=== PATIENT | female | born 1985 | race Caucasian/White ===

== ENCOUNTER 2017-01-30 07:26 | Emergency (ER) | payer MEDICAID ==
[~2017-01-30] VITALS: Ht 157.5 cm; Wt 71.5 kg
[2017-01-30 07:30] VITALS: Ht 157.5 cm; Wt 71.5 kg
[2017-01-30] MEDS ORDERED: SOD CHLORIDE 0.9% 1,000 ML IV STA (08:26)
[2017-01-30] MEDS ORDERED: ONDANSETRON 4 MG INJ IV STA (08:26)
[2017-01-30] MEDS ORDERED: ACETAMINOPHEN 500 MG TAB PO STA (08:52)
[2017-01-30 09:12] LABS: BASOPHILS % 0.3 % (0.0-2.0); EOSINOPHILS # 0.2 10^3/ul (0.0-0.5); EOSINOPHILS % 2.1 % (0.0-7.0); HEMATOCRIT 39.2 % (37.0-47.0); HEMOGLOBIN 13.8 g/dl (12.0-16.0); LYMPHOCYTES # 2.6 10^3/ul (0.8-2.9); LYMPHOCYTES % 33.3 % (15.0-51.0); MEAN CORPUSCULAR HGB CONC 35.2 g/dl (32.0-37.0); MEAN CORPUSCULAR VOLUME 88.1 fl (82.0-101.0); MEAN PLATELET VOLUME 10.3 fl (7.4-10.4); MONOCYTE # 0.5 10^3/ul (0.3-0.9); MONOCYTES % 6.7 % (0.0-11.0); NEUTROPHIL # 4.5 10^3/ul (1.6-7.5); NEUTROPHILS % 57.3 % (39.0-77.0); PLATELET COUNT 385 10^3/UL (140-415); RED BLOOD COUNT 4.45 10^6/ul (4.20-5.40); RED CELL DISTRIBUTION WIDTH 11.9 % (11.5-14.5); WHITE BLOOD COUNT 7.8 10^3/ul (4.8-10.8)
[2017-01-30 09:22] LABS: ADD UMIC YES; UR ASCORBIC ACID NEGATIVE (NEGATIVE); UR BACTERIA FEW /HPF (NONE SEEN); UR BILIRUBIN (Dip) NEGATIVE (NEGATIVE); UR BLOOD (Dip) NEGATIVE (NEGATIVE); UR CLARITY SLIGHTLY CLOUDY (CLEAR); UR COLOR YELLOW (YELLOW); UR GLUCOSE (Dip) NEGATIVE (NEGATIVE); UR KETONES (Dip) NEGATIVE (NEGATIVE); UR LEUKOCYTE ESTERASE (Dip) 1+ Leu/ul (NEGATIVE); UR MUCUS MANY /HPF (NONE SEEN); UR NITRITE (Dip) NEGATIVE (NEGATIVE); UR RBC 4 /HPF (0-5); UR SPECIFIC GRAVITY (Dip) 1.021 (1.003-1.030); UR SQUAMOUS EPITHELIAL CELL MODERATE /HPF (FEW); UR TOTAL PROTEIN (Dip) NEGATIVE (NEGATIVE); UR UROBILINOGEN (Dip) NEGATIVE (NEGATIVE)
[2017-01-30 09:28] LABS: ALBUMIN 4.1 g/dl (3.3-4.9); ALBUMIN/GLOBULIN RATIO 0.97; BILIRUBIN,INDIRECT 0.5 mg/dl (0-1.1); BILIRUBIN,TOTAL 0.5 mg/dl (0.2-1.3); CALCIUM 9.7 mg/dl (8.4-10.2); CREATININE 0.52 mg/dl (0.44-1.00); POTASSIUM 3.9 mmol/L (3.5-5.1); TOTAL PROTEIN 8.3 g/dl (6.1-8.1)
--- NOTE | 2017-01-30 09:43 | RADRPT ---
PROCEDURE: US LIMITED ABDOMEN RIGHT UPPER QUADRANT CLINICAL INDICATION: Right upper quadrant abdominal pain TECHNIQUE: Multiple real-time images were acquired of the patient's right upper quadrant utilizing a high resolution transducer. COMPARISON: None FINDINGS: The pancreas is partially visualized due to overlying bowel gas. The aorta and IVC are within normal limits. Hepatic morphology is within limits. There is diffuse heterogeneous echotexture of the liver The yen er measures 15.2 cm in length. There is normal hepatic pedal flow of the portal vein. The gallbladder is visualized. Multiple gallstones are identified. No evidence of gallbladder wall t hickening. The common bile duct is within normal limits measuring 4.1 mm. The right kidney measures 10.1 cm. The cortex and parenchymal is within normal limits. No evidence o f obstruction hydronephrosis. IMPRESSION: 1. Partial visualization of the pancreas due to overlying bowel gas. 2. Fatty liver. 3. Cholelithiasis, without gross sonographic evidence of inflammatory changes at this time. Common b ile duct is within normal limits. Correlate with clinical findings. RPTAT: AARR Physician Brooklynn Date Time Electronically viewed and signed by Physician Brooklynn on 01/30/2017 09:43 JEROMY/
--- NOTE | 2017-01-30 10:05 | RADRPT ---
PROCEDURE: First trimester obstetrical ultrasound. CLINICAL INDICATION: , pelvic pain TECHNIQUE: Transabdominal and transvaginal glass scale and color Doppler ultrasound of the uterus of less than 14 weeks gestation (first trimester). COMPARISON: None available FINDINGS: A single intrauterine gestation is present. No evidence of extrauterine gestation. Mean sac diameter: 3.47 cm [place]-rump length: 2.30 cm heart rate: 173 Beats per minute Small subchorionic hemorrhage is present. Free fluid: None. IMPRESSION: Single intrauterine gestation with an estimated gestational age of 8 weeks 6 days by ultrasound kaushal mayo. Small subchorionic hemorrhage. RPTAT: AADD .Black Calvo MD, MD Date Time Electronically viewed and signed by .Black Calvo MD, on 01/30/2017 10:04 .B/
[2017-01-30] MEDS ORDERED: ACET325T33 PO (11:17)
[2017-01-30 11:37] VITALS: BP 99/59; PULSE 77; RESP 18; TEMP 98.2
--- NOTE | 2017-01-30 15:06 | ERD ---
ER Documentation Chief Complaint Chief Complaint ABDOMINAL PAIN,VOMITING,8 WEEKS HPI 31-year-old female complaining of abdominal pain. Patient is 8 weeks . She had one episode of vomiting earlier today. LNMP was November 24. She has not been seen by outside clinic. A0. Denies vaginal bleeding. Denies chest pain or shortness of breath. Denies fever. Has not taken medications for symptoms. States abdominal pain is constant. Denies medical problems. Allergy to medications, penicillin. Surgical history: Denies. Social history: Denies ROS All systems reviewed and are negative except as per history of present illness. Medications Home Meds Active Scripts Acetaminophen* (Tylenol*) 325 Mg Tablet, 2 TAB PO Q6 Y for PAIN AND OR ELEVATED TEMP, #20 TAB Prov:MICHELE FRANK PA-C 01/30/17 Allergies Allergies: Coded Allergies: No Known Allergy (Unverified , 01/30/17) PMhx/Soc Medical and Surgical Hx: pt denies Medical Hx, pt denies Surgical Hx Hx Alcohol Use: No Hx Substance Use: No Hx Tobacco Use: No Smoking Status: Never smoker Physical Exam Vitals Vital Signs Date Time Temp Pulse Resp B/P Pulse Ox O2 Delivery O2 Flow Rate FiO2 01/30/17 11:37 98.2 77 18 99/59 98 Room Air 01/30/17 07:30 71.5 82 18 110/71 98 Physical Exam GENERAL: The patient is well-appearing, well-nourished, in no acute distress HEENT: Atraumatic. Conjunctivae are pink. Pupils equal, round, and reactive to light. There is no scleral icterus. Tympanic membranes clear bilaterally. Oropharynx clear. No nystagmus or photophobia. NECK: C-spine is soft and supple. There is no meningismus. There is no cervical lymphadenopathy. CHEST: Clear to auscultation bilaterally. There are no rales, wheezes or rhonchi. HEART: Regular rate and rhythm. No murmurs, clicks, rubs or gallops. No S3 or S4. ABDOMEN:Soft, nontender and nondistended. Good bowel sounds. No rebound or guarding. No gross peritonitis. No gross organomegaly or masses. No Bonds sign or McBurney point tenderness. Result Diagram: 01/30/1744 01/30/17843 Results 24 hrs Laboratory Tests Test 01/30/17 08:44 White Blood Count 7.810^3/ul Red Blood Count 4.4510^6/ul Hemoglobin 13.8g/dl Hematocrit 39.2% Mean Corpuscular Volume 88.1fl Mean Corpuscular Hemoglobin 31.0pg Mean Corpuscular Hemoglobin Concent 35.2g/dl Red Cell Distribution Width 11.9% Platelet Count 15913^3/UL Mean Platelet Volume 10.3fl Neutrophils % 57.3% Lymphocytes % 33.3% Monocytes % 6.7% Eosinophils % 2.1% Basophils % 0.3% Nucleated Red Blood Cells % 0.0/100WBC Neutrophils # 4.510^3/ul Lymphocytes # 2.610^3/ul Monocytes # 0.510^3/ul Eosinophils # 0.210^3/ul Basophils # 0.010^3/ul Nucleated Red Blood Cells # 0.010^3/ul Urine Color YELLOW Urine Clarity SLIGHTLY CLOUDY Urine pH 5.0 Urine Specific [place] 1.021 Urine Ketones NEGATIVEmg/dL Urine Nitrite NEGATIVEmg/dL Urine Bilirubin NEGATIVEmg/dL Urine Urobilinogen NEGATIVEmg/dL Urine Leukocyte Esterase 1+Monica/ul Urine Microscopic RBC 4/HPF Urine Microscopic WBC 16/HPF Urine Squamous Epithelial Cells MODERATE/HPF Urine Bacteria FEW/HPF Urine Mucus MANY/HPF Urine Hemoglobin NEGATIVEmg/dL Urine Glucose NEGATIVEmg/dL Urine Total Protein NEGATIVEmg/dl Sodium Level 140mmol/L Potassium Level 3.9mmol/L Chloride Level 101mmol/L Carbon Dioxide Level 27mmol/L Anion Gap 16 Blood Urea Nitrogen 7mg/dl Creatinine 0.52mg/dl Glucose Level 105mg/dl Calcium Level 9.7mg/dl Total Bilirubin 0.5mg/dl Direct Bilirubin 0.00mg/dl Indirect Bilirubin 0.5mg/dl Aspartate Amino Transf (AST/SGOT) 32IU/L Alanine Aminotransferase (ALT/SGPT) 51IU/L Alkaline Phosphatase 89IU/L Total Protein 8.3g/dl Albumin 4.1g/dl Globulin 4.20g/dl Albumin/Globulin Ratio 0.97 Lipase 92U/L Beta HCG, Quantitative 271299.0mIU/ml Current Medications Medications (Trade) Dose Ordered Sig/Suki Route PRN Reason Start Time Stop Time Status Last Admin Dose Admin Sodium Chloride (NS) 1,000 ml @ 1,000 mls/hr Q1H STAT IV 01/30/17 08:26 01/30/17 09:25 DC 01/30/17 08:50 Ondansetron HCl (Zofran Inj) 4 mg ONCE STAT IV 01/30/17 08:26 01/30/17 08:29 DC 01/30/17 08:50 Acetaminophen (Tylenol Tab) 1,000 mg ONCE STAT PO 01/30/17 08:52 01/30/17 08:54 DC 01/30/17 09:01 Procedures/MDM DIAGNOSTIC IMAGING REPORT Patient: LIZ PALACIOS : 1985 Age: 31 Sex: F MR #: [id number] DOS: 01/30/17 0000 Ordering MD: KAVON FRANK PA-C Location: [facility] Room/Bed: PROCEDURE: US LIMITED ABDOMEN RIGHT UPPER QUADRANT CLINICAL INDICATION: Right upper quadrant abdominal pain TECHNIQUE: Multiple real-time images were acquired of the patient's right upper quadrant utilizing a high resolution transducer. COMPARISON: None FINDINGS: The pancreas is partially visualized due to overlying bowel gas. The aorta and IVC are within normal limits. Hepatic morphology is within limits. There is diffuse heterogeneous echotexture of the liver The liver measures 15.2 cm in length. There is normal hepatic pedal flow of the portal vein. The gallbladder is visualized. Multiple gallstones are identified. No evidence of gallbladder wall thickening. The common bile duct is within normal limits measuring 4.1 mm. The right kidney measures 10.1 cm. The cortex and parenchymal is within normal limits. No evidence of obstruction hydronephrosis. IMPRESSION: 1. Partial visualization of the pancreas due to overlying bowel gas. 2. Fatty liver. 3. Cholelithiasis, without gross sonographic evidence of inflammatory changes at this time. Common bile duct is within normal limits. Correlate with clinical findings. DIAGNOSTIC IMAGING REPORT Patient: LIZ PALACIOS : 1985 Age: 31 Sex: F MR #: [id number] DOS: 01/30/17 0000 Ordering MD: KAVON FRANK PA-C Location: [facility] Room/Bed: PROCEDURE: First trimester obstetrical ultrasound. CLINICAL INDICATION: , pelvic pain TECHNIQUE: Transabdominal and transvaginal glass scale and color Doppler ultrasound of the uterus of less than 14 weeks gestation (first trimester). COMPARISON: None available FINDINGS: A single intrauterine gestation is present. No evidence of extrauterine gestation. Mean sac diameter: 3.47 cm [place]-rump length: 2.30 cm heart rate: 173 Beats per minute Small subchorionic hemorrhage is present. Free fluid: None. IMPRESSION: Single intrauterine gestation with an estimated gestational age of 8 weeks 6 days by ultrasound criteria. Small subchorionic hemorrhage. MDM: 31-year-old female complaining of abdominal pain. Patient's abdominal pain is likely associated with gallstones. Patient did not have concerning findings for cholecystitis. Blood work is within normal limits and ultrasound is within normal limits. Patient's vaginal ultrasound is within normal limits. I have low suspicion for miscarriage or ectopic at this time. Patient is Rh+ and does not require RhoGam injection. Hemoglobin is stable. Patient is not havin having vaginal bleeding. Patient is discharged with strict ER precautions and recommended to follow-up with PMD within 1-2 days for close evaluation. All questions answered at discharge. Departure Diagnosis: Primary Impression: Gallstone Condition: Stable Patient Instructions: Gallstones Referrals: [facility] YOU HAVE RECEIVED A MEDICAL SCREENING EXAM AND THE RESULTS INDICATE THAT YOU DO NOT HAVE A CONDITION THAT REQUIRES URGENT TREATMENT IN THE EMERGENCY DEPARTMENT. FURTHER EVALUATION AND TREATMENT OF YOUR CONDITION CAN WAIT UNTIL YOU ARE SEEN IN YOUR DOCTORS OFFICE WITHIN THE NEXT 1-2 DAYS. IT IS YOUR RESPONSIBILITY TO MAKE AN APPOINTMENT FOR FOLOW-UP CARE. IF YOU HAVE A PRIMARY DOCTOR --you should call your primary doctor and schedule an appointment IF YOU DO NOT HAVE A PRIMARY DOCTOR YOU CAN CALL OUR PHYSICIAN REFERRAL HOTLINE AT IF YOU CAN NOT AFFORD TO SEE A PHYSICIAN YOU CAN CHOSE FROM THE FOLLOWING [facility] [address] [facility] [address] [facility] [address] [facility] [address] [facility] [address] [facility]. [facility]. [address] Additional Instructions: FOLLOW UP WITH YOUR PRIMARY CARE PHYSICIAN TOMORROW.Return to this facility if you are not improving as expected. MICHELE FRANK PA-C Jan 30, 2017 15:06
== END 2017-01-30 11:38 | disposition home or self-care (01) ==
LOC: FTE 07:26
DX: O99.611 Diseases of the digestive system complicating pregnancy, first trimester (principal); K80.20 Calculus of gallbladder without cholecystitis without obstruction; R10.9 Unspecified abdominal pain; R10.2 Pelvic and perineal pain; Z3A.08 8 weeks gestation of pregnancy
CPT/HCPCS: 36415; 76705; 76801; 80053; 81001; 83690; 84702; 85025; 86900; 86901; 96374; J2405; J7030; Z7502; Z7610

== ENCOUNTER 2017-05-14 13:05 | Emergency (ER) | END 2017-05-14 16:35 | disposition home or self-care (01) ==

== ENCOUNTER 2017-08-23 09:16 | Outpatient (CLI) | END 2017-08-23 13:35 | disposition home or self-care (01) ==

== ENCOUNTER 2017-08-25 | Inpatient (IN) | END 2017-08-27 16:46 | disposition home or self-care (01) | DRG 775 ==

== ENCOUNTER 2018-09-25 18:53 | Inpatient (IN) | payer MEDICAID ==
[~2018-09-25] VITALS: Ht 154.9 cm; Wt 69.8 kg
[~2018-09-25 18:53] MED LIST: ACET325T33 PO; ACET500C5 PO; FLUT9.9S NASAL; NITR50CA PO
[2018-09-25 19:09] VITALS: Ht 154.9 cm; Wt 69.8 kg
[2018-09-25] MEDS ORDERED: SOD CHLORIDE 0.9% 1,000 ML IV STA (19:29)
[2018-09-25] MEDS ORDERED: KETOROLAC 30 MG INJ IV STA (19:29)
[2018-09-25] MEDS ORDERED: ONDANSETRON 4 MG INJ IV STA (19:29)
[2018-09-25] MEDS ORDERED: ACETAMINOPHEN 325 MG TAB PO PRN (21:00)
[2018-09-25] MEDS ORDERED: ONDANSETRON 4 MG INJ IV PRN (21:00)
[2018-09-26] VITALS (19 sets, daily range): BP systolic 106–131; BP diastolic 58–78; PULSE 64–82; RESP 17–32
[2018-09-26] MEDS ORDERED: NACL 0.9% 3 ML SYG IV SCH (02:00)
[2018-09-26] MEDS: DEXTROSE 5%-0.45% NACL 1,000 ML IV SCH ×4 (02:49→21:33)
[2018-09-26] MEDS: CEFTRIAXONE 1 GM/50 ML (PMX) 50 ML IVPB SCH (06:26)
[2018-09-26] MEDS ORDERED: POTASSIUM CHLORIDE (SR) 20 MEQ TAB PO STA (09:46)
[2018-09-26] MEDS ORDERED: POTASSIUM CHLORIDE 100 ML IVPB ONE (12:00)
[2018-09-26] MEDS ORDERED: BUPIVACAINE 0.5%/EPI (SDV) 30 ML INJ ONE (18:26)
[2018-09-26] MEDS ORDERED: LIDOCAINE 1% (MPF) 30 ML INJ ONE (18:26)
[2018-09-26] MEDS ORDERED: SUCCINYLCHOLINE CHLORIDE 100 MG/5 ML SYG IV ONE (18:57)
[2018-09-26] MEDS ORDERED: NEOSTIGMINE 3 MG/3 ML SYRINGE ONE (18:57)
[2018-09-26] MEDS ORDERED: GLYCOPYRROLATE 0.4 MG INJ ONE (18:57)
[2018-09-26] MEDS ORDERED: MIDAZOLAM 1 MG/ML 2 ML INJ ONE (18:57)
[2018-09-26] MEDS ORDERED: LIDOCAINE 2% (SDV) 5 ML INJ ONE (18:57)
[2018-09-26] MEDS ORDERED: ROCURONIUM 50 MG INJ ONE (18:57)
[2018-09-26] MEDS ORDERED: CEFAZOLIN 1 GM INJ ONE (18:57)
[2018-09-26] MEDS ORDERED: PROPOFOL 200 MG INJ ONE (18:57)
[2018-09-26] MEDS ORDERED: DEXAMETHASONE 4 MG/ML 5 ML INJ ONE (18:58)
[2018-09-26] MEDS ORDERED: ONDANSETRON 4 MG INJ ONE (18:58)
[2018-09-26] MEDS ORDERED: FAMOTIDINE 20 MG INJ ONE (18:58)
[2018-09-26] MEDS ORDERED: FENTAnyl 50 MCG/ML VIAL ONE (18:58)
[2018-09-26] MEDS ORDERED: LABETALOL HCL 20MG INJ IV PRN (20:00)
[2018-09-26] MEDS ORDERED: METOCLOPRAMIDE 10 MG INJ IV PRN (20:00)
[2018-09-26] MEDS ORDERED: OXYCODONE/ACETAMINOPHEN (5/325) TAB PO PRN ×2 (20:00)
[2018-09-26] MEDS ORDERED: HYDROmorphONE 1 MG/5 ML IV SYRINGE IV PRN (20:00)
[2018-09-26] MEDS ORDERED: PROCHLORPERAZINE 10 MG INJ IV PRN (20:00)
[2018-09-26] MEDS ORDERED: FENTAnyl 50 MCG/ML VIAL IV PRN ×2 (20:00)
[2018-09-26] MEDS ORDERED: HALOPERIDOL 5 MG INJ IV PRN (20:00)
[2018-09-26] MEDS ORDERED: ONDANSETRON 4 MG INJ IV PRN (20:00)
[2018-09-26] MEDS ORDERED: KETOROLAC 30 MG INJ ONE (20:10)
[2018-09-26] MEDS: HYDROmorphONE 1 MG/5 ML IV SYRINGE IV PRN ×2 (20:26→21:08)
[2018-09-26] MEDS: morphine 2 MG INJ IV PRN (21:51)
[2018-09-27] MEDS: morphine 2 MG INJ IV PRN ×5 (01:46→18:37)
[2018-09-27 02:07] VITALS: BP 108/59; PULSE 69; RESP 20
[2018-09-27] MEDS: CEFTRIAXONE 1 GM/50 ML (PMX) 50 ML IVPB SCH (05:48)
[2018-09-27] MEDS: DEXTROSE 5%-0.45% NACL 1,000 ML IV SCH ×2 (06:25→17:25)
[2018-09-27 08:00] VITALS: BP 101/57; PULSE 70; RESP 19
[2018-09-27 13:55] VITALS: BP 110/60; PULSE 66; RESP 18
[2018-09-27 19:38] VITALS: BP 115/66; PULSE 73; RESP 20
[2018-09-27] MEDS ORDERED: DIPHENHYDRAMINE 50 MG INJ IV ONE (20:30)
[2018-09-27] MEDS ORDERED: METHYLPREDNISOLONE 40 MG INJ IV ONE (20:30)
[2018-09-28] MEDS ORDERED: ACETAMINOPHEN 500 MG TAB PO PRN ×2 (01:00)
[2018-09-28] MEDS: KETOROLAC 15 MG INJ IV PRN ×3 (01:25→14:25)
[2018-09-28 02:04] VITALS: BP 108/62; PULSE 74; RESP 18
[2018-09-28] MEDS: DEXTROSE 5%-0.45% NACL 1,000 ML IV SCH ×3 (03:33→17:28)
[2018-09-28] MEDS: CEFTRIAXONE 1 GM/50 ML (PMX) 50 ML IVPB SCH (06:23)
[2018-09-28 07:50] VITALS: BP 112/63; PULSE 64; RESP 17
[2018-09-28] MEDS: MEROPENEM 1 GM/50ML(PMX) 50 ML IVPB SCH (11:06)
[2018-09-28 13:49] VITALS: BP 116/71; PULSE 58; RESP 17
[2018-09-28 20:00] VITALS: BP 113/62; PULSE 71; RESP 17
[2018-09-29] MEDS: MEROPENEM 1 GM/50ML(PMX) 50 ML IVPB SCH ×4 (00:10→22:53)
[2018-09-29] MEDS: KETOROLAC 15 MG INJ IV PRN ×2 (00:14→09:05)
[2018-09-29 02:00] VITALS: BP 115/65; PULSE 67; RESP 18
[2018-09-29 08:28] VITALS: BP 107/62; PULSE 79; RESP 18
[2018-09-29] MEDS ORDERED: POTASSIUM CHLORIDE (SR) 20 MEQ TAB PO STA (11:30)
[2018-09-29 14:14] VITALS: BP 110/68; PULSE 80; RESP 18
[2018-09-29 20:00] VITALS: BP 116/67; PULSE 72; RESP 19
[2018-09-30] MEDS ORDERED: AL HYDROX/MG HYDROX/SIMETH 30 ML CUP PO PRN (01:00)
[2018-09-30] MEDS: ONDANSETRON 4 MG INJ IV PRN ×2 (01:51→13:52)
[2018-09-30 02:00] VITALS: BP 118/81; PULSE 76; RESP 18
[2018-09-30] MEDS ORDERED: HYDROmorphONE 0.5 MG/0.5 ML SYG IV ONE (05:00)
[2018-09-30] MEDS ORDERED: DOCUSATE SODIUM 100 MG CAP PO PRN (05:00)
[2018-09-30] MEDS: MEROPENEM 1 GM/50ML(PMX) 50 ML IVPB SCH ×3 (05:25→22:07)
[2018-09-30] MEDS: KETOROLAC 15 MG INJ IV PRN (05:32)
[2018-09-30 08:00] VITALS: BP 119/63; PULSE 56; RESP 16
[2018-09-30] MEDS ORDERED: HYDROmorphONE 0.5 MG/0.5 ML SYG IV PRN (08:30)
[2018-09-30] MEDS ORDERED: HYDROmorphONE 1 MG/ML SYG IV ONE (08:30)
[2018-09-30] MEDS: POLYETHYLENE GLYCOL 17 GM PACKET PO SCH (08:38)
[2018-09-30] MEDS ORDERED: DOCUSATE SODIUM 100 MG CAP PO SCH (09:00)
[2018-09-30 14:00] VITALS: BP 120/65; PULSE 77; RESP 14
[2018-09-30 19:15] VITALS: BP 111/67; PULSE 72; RESP 16
[2018-10-01 02:05] VITALS: BP 109/65; PULSE 78; RESP 18
[2018-10-01] MEDS: MEROPENEM 1 GM/50ML(PMX) 50 ML IVPB SCH ×3 (06:34→22:02)
[2018-10-01] MEDS: POLYETHYLENE GLYCOL 17 GM PACKET PO SCH ×2 (08:23→09:53)
[2018-10-01 08:26] VITALS: BP 111/67; PULSE 84; RESP 20
[2018-10-01 14:00] VITALS: BP 110/72; PULSE 74; RESP 18
[2018-10-01 20:00] VITALS: BP 114/73; PULSE 80; RESP 18
[2018-10-02 02:00] VITALS: BP 107/64; PULSE 73; RESP 17
[2018-10-02] MEDS: MEROPENEM 1 GM/50ML(PMX) 50 ML IVPB SCH (05:29)
[2018-10-02 07:21] VITALS: BP 94/53; PULSE 89; RESP 16
[2018-10-02] MEDS: POLYETHYLENE GLYCOL 17 GM PACKET PO SCH (08:38)
== END 2018-10-02 13:51 | disposition home or self-care (01) | DRG 418 ==
LOC: FTE 18:53 → PP2 21:00
PROVIDERS: ADMIT Internal Medicine; ATTEND Internal Medicine
PROC: 0FB04ZX Excision of Liver, Percutaneous Endoscopic Approach, Diagnostic (ICD-10-PCS; 2018-09-26)
PROC: 0FT44ZZ Resection of Gallbladder, Percutaneous Endoscopic Approach (ICD-10-PCS; principal; 2018-09-26 19:00)
DX: K85.10 Biliary acute pancreatitis without necrosis or infection (principal); N39.0 Urinary tract infection, site not specified; K80.20 Calculus of gallbladder without cholecystitis without obstruction; K76.0 Fatty (change of) liver, not elsewhere classified; B96.20 Unspecified Escherichia coli [E. coli] as the cause of diseases classified elsewhere; Z16.12 Extended spectrum beta lactamase (ESBL) resistance
CPT/HCPCS: 74181; 76705; 80048; 80053; 81001; 81025; 82150; 83690; 83735; 84100; 85025; 85610; 86038; 86255; 86704; 86706; 86709; 86803; 87086; 87340; 88304; 88307; 88313; 96374; 96375; 96376; J0690; J0696; J1100; J1170; J1200; J1885; J2185; J2250; J2270; J2405; J2710; J2920; J3010; J3480; J7030; J7042